=== PATIENT | female | born 1950 | race Caucasian/White ===

== ENCOUNTER 2017-05-19 05:14 | Inpatient (IN) | payer MEDICARE, BC ==
[~2017-05-19] VITALS: Ht 157.5 cm; Wt 72.3 kg
[2017-05-19] VITALS (32 sets, daily range): BP systolic 99–186; BP diastolic 58–115; PULSE 76–110; RESP 14–25; Ht 157.5 cm; Wt 72.3 kg
[~2017-05-19 05:14] MED LIST: CAPT12.52 PO; COSO10 BOTH EYES; FIORICET PO; ONDA-43 PO
[2017-05-19] MEDS ORDERED: CEFAZOLIN 2 GM/50 ML (PMX) 50 ML IVPB SCH (06:00)
[2017-05-19] MEDS ORDERED: SOD CHLORIDE 0.9% 1,000 ML IV SCH (06:00)
[2017-05-19] MEDS ORDERED: BUPIVACAINE 0.25% (MPF) 30 ML INJ ONE (06:28)
[2017-05-19] MEDS ORDERED: METOPROLOL 5 MG INJ ONE (07:00)
[2017-05-19] MEDS ORDERED: ONDANSETRON 4 MG INJ ONE (07:00)
[2017-05-19] MEDS ORDERED: MIDAZOLAM 1 MG/ML 2 ML INJ ONE (07:50)
[2017-05-19] MEDS ORDERED: POLYMYXIN/BACITRACIN 1L IRRIG IRR ONE (08:06)
[2017-05-19] MEDS ORDERED: CEFAZOLIN 1 GM INJ ONE (09:21)
[2017-05-19] MEDS ORDERED: hydrALAzine 20 MG INJ ONE (09:29)
[2017-05-19] MEDS ORDERED: PROPOFOL 20 ML ONE (09:56)
[2017-05-19] MEDS ORDERED: LIDOCAINE 2% (SDV) 5 ML INJ ONE (09:56)
[2017-05-19] MEDS ORDERED: GLYCOPYRROLATE 0.4 MG INJ ONE ×2 (09:58→10:14)
[2017-05-19] MEDS ORDERED: NEOSTIGMINE 3 MG/3 ML SYRINGE ONE (09:58)
[2017-05-19] MEDS: SOD CHLORIDE 0.9% 1,000 ML IV SCH ×2 (10:01→12:24)
--- NOTE | 2017-05-19 10:10 | OPR ---
Date/Time of Note Date/Time of Note DATE: 05/19/17 TIME: 10:03 Operative Report Procedure Date: May 19, 2017 Preoperative Diagnosis incarcerated incisional hernia Postoperative Diagnosis same Operation/Procedure Performed 1. laparoscopic converted to open incarcerated incisional hernia repair 2. implantation of intraabdominal 15x[address] mesh 3. small bowel resection with primary anastomosis 8 cm 4. lysis of adhesions 2 hours 5. therapeutic injection of subcutaneous local anesthesia Surgeon see signature line Admissions Representative none Anesthesia Type: general Estimated Blood Loss: 50 - 100 ml's Transfusion none Specimen small bowel segment Grafts/Implants none Complications none Pt Condition Post Procedure: stable Indications This is a 67-year-old female who has had prior open laparotomies. She presents with an incarcerated incisional hernia. She requests surgical repair. Risks alternatives benefits and percent were discussed the patient. Potential complications including but not limited to bleeding infection mesh infection need for small bowel resection need for reoperation possibly were discussed the patient. Patient expresses understanding and consents to the operation Procedure Description Patient is taken to the OR and prepped and draped in usual sterile fashion. Surgical timeout was performed. IV antibiotics given. Left upper quadrant 5 mm transverse incision is made with a 15 blade. Using a 5 mm optical trocar optical entry is performed pneumoperitoneum is established left flank 12 mm optical trochars placed under direct visualization left lower quadrant 5 mm optical trocar was placed under direct visualization. Upon initial inspection there is a large incarcerated hernia which did not appear amenable to a laparoscopic approach due to the wide neck of the defect. additionally there was a significant amount of adhesions to the anterior abdominal wall from prior laparotomies. Decision was made to convert to open. Midline incision was made with resection of part of the cicatrix. Dissection cautery was carried down to the hernia. The incarcerated hernia was reduced. Extensive lysis of adhesions was performed to allow mobilization of the small bowel and to freshen up the fascial edges. An area of incarcerated intestine was identified which appeared that the small bowel was macerated and is teased. This area was resected using the double staple technique by creating 2 enterotomies and stapling with 2 fires of the 55 white load stapler for the anastomosis. The resected portion was removed by 2 fires of a 55 white load SARTHAK stapler. The staple line was then oversewn with a 3-0 Vicryl stitch for additional hemostasis. There was absolutely no spillage. Irrigation was used to wash at the area. At this point the decision was made to place a synthetic mesh as a biologic mesh did not appear to have the strength to hold the large neck of the hernia. Underlay mesh with 15 x [address] was secured in place with interrupted #1 Prolenes. The fascial edges were then closed primarily with 2 running #1 looped PDS is from superior to inferior and inferior to superior and tied down. The wound was irrigated again with antibiotic solution. Skin was closed using skin anna. The port sites were closed with skin anna. Therapeutic subcutaneous local anesthesia was injected to all incision sites. Dry dressings were applied. Keegan TERRY May 19, 2017 10:10
[2017-05-19] MEDS ORDERED: HYDROCODONE/APAP (10/325) TAB PO PRN (10:30)
[2017-05-19] MEDS ORDERED: EPHEDrine SULFATE 50 MG/5 ML SYG IV PRN (10:30)
[2017-05-19] MEDS ORDERED: ALBUTEROL 0.083% (NEB) 2.5 MG/3 ML AMP HHN PRN (10:30)
[2017-05-19] MEDS ORDERED: METOCLOPRAMIDE 10 MG INJ IV PRN (10:30)
[2017-05-19] MEDS ORDERED: FENTAnyl 50 MCG/ML VIAL IV PRN ×2 (10:30)
[2017-05-19] MEDS: AMPICILLIN/SULB 3 GM/NS (PMX) 100 ML IVPB SCH ×3 (10:30→21:50)
[2017-05-19] MEDS ORDERED: LABETALOL HCL 20MG INJ IV PRN (10:30)
[2017-05-19] MEDS ORDERED: morphine 2 MG INJ IV PRN (10:30)
[2017-05-19] MEDS ORDERED: hydrALAzine 20 MG INJ IV PRN (10:30)
[2017-05-19] MEDS ORDERED: HYDROmorphONE (0.2 MG/ML) 10ML SYG IV PRN ×2 (10:30)
[2017-05-19] MEDS: metroNIDAZOLE 500 MG/NS (PMX) 100 ML IVPB SCH ×3 (10:30→18:52)
[2017-05-19] MEDS ORDERED: morphine (1 MG/ML) 10ML SYRINGE IV PRN ×2 (10:30)
[2017-05-19] MEDS ORDERED: ONDANSETRON 4 MG INJ IV PRN (10:30)
[2017-05-19] MEDS: HYDROmorphONE (0.2 MG/ML) 10ML SYG IV PRN ×3 (10:36→10:47)
[2017-05-19] MEDS ORDERED: HYDROmorphONE 0.2 MG/ML PCA IV SCH (11:00)
[2017-05-19] MEDS ORDERED: MEPERIDINE 25 MG INJ IV ONE (11:00)
[2017-05-19 11:36] LABS: BASOPHIL # 0.2 10^3/ul (0.0-0.1); BASOPHILS % 0.7 % (0.0-2.0); EOSINOPHILS # 0.5 10^3/ul (0.0-0.5); EOSINOPHILS % 2.3 % (0.0-7.0); HEMOGLOBIN 13.7 g/dl (12.0-16.0); HOLD TRANSMISSIONS 1; LYMPHOCYTES # 2.5 10^3/ul (0.8-2.9); LYMPHOCYTES % 11.6 % (15.0-51.0); MEAN CORPUSCULAR HEMOGLOBIN 28.1 pg (29.0-33.0); MEAN CORPUSCULAR HGB CONC 31.9 g/dl (32.0-37.0); MEAN CORPUSCULAR VOLUME 88.3 fl (82.0-101.0); MEAN PLATELET VOLUME 9.7 fl (7.4-10.4); MONOCYTE # 0.9 10^3/ul (0.3-0.9); NEUTROPHIL # 17.3 10^3/ul (1.6-7.5); NEUTROPHILS % 79.9 % (39.0-77.0); PLATELET COUNT 423 10^3/UL (140-415); RED BLOOD COUNT 4.87 10^6/ul (4.20-5.40); RED CELL DISTRIBUTION WIDTH 13.1 % (11.5-14.5); WHITE BLOOD COUNT 21.7 10^3/ul (4.8-10.8)
[2017-05-19 11:58] LABS: ALBUMIN 4.1 g/dl (3.3-4.9); ALBUMIN/GLOBULIN RATIO 0.97; BILIRUBIN,INDIRECT 0.2 mg/dl (0-1.1); BILIRUBIN,TOTAL 0.2 mg/dl (0.2-1.3); TOTAL PROTEIN 8.3 g/dl (6.1-8.1)
[2017-05-19 12:03] LABS: CALCIUM 9.1 mg/dl (8.4-10.2); CREATININE 0.68 mg/dl (0.44-1.00); POTASSIUM 3.9 mmol/L (3.5-5.1)
--- NOTE | 2017-05-19 13:24 | HP ---
DATE OF ADMISSION: 05/19/2017 HISTORY OF PRESENT ILLNESS: The patient is a 67-year-old female with history of hypertension, conge stive heart failure, major depressive disorder and insomnia. The patient was evaluated for ventral and umbilical hernia. The patient was evaluated in general surgery consultation and patient was bro ught to the hospital and was evaluated by Dr. Mancilla and patient was brought to the hospital today and underwent laparoscopic, converted to open, incarcerated incisional hernia repair with implementation of intraabdominal mesh, and small bowel resection with primary anastomosis and lysis of adhesions. Post repair, the patient experienced significant pain as well as hypertension and patient will be a dmitted for further management. PAST MEDICAL HISTORY: Per HPI. PAST SURGICAL HISTORY: Status post hysterectomy in 1980, status post cataract surgery in the right eye in 2009, status post cholecystectomy in 2012. FAMILY HISTORY: Positive for history of depression and hypertension. SOCIAL HISTORY: The patient lives at home with his family. There is history of tobacco use, alcoho l use, illicit drug use. ALLERGIES: NO KNOWN ALLERGIES. HOME MEDICATIONS: Include captopril head and Cosopt eyedrops. REVIEW OF SYSTEMS: A 12-point review of systems is negative unless what mentioned in the HPI. PHYSICAL ASSESSMENT: GENERAL: Well-developed, well-nourished female, currently is lethargic, but easily arousable, alert to name and situation. VITAL SIGNS: Temperature is 98.0, pulse is 106, blood pressure 146/89, respiratory rate 21, oxygen saturation 93% on 2 liters nasal cannula. HEENT: Head is atraumatic, normocephalic. Pupils equal, round, reactive to light and accommodation . Oral mucosa is pink and moist. NECK: Supple, no cervical lymphadenopathy, no thyromegaly. CHEST: Lungs clear bilaterally. There are no rhonchi, wheezes, rales noted. CARDIOVASCULAR: Normal S1, S2. No murmurs, gallops, or extra sound. ABDOMEN: Status post surgery. SKIN: There is no rash, petechiae noted. EXTREMITIES: Pulses equal bilaterally 2+. LABORATORY DATA: Prior to surgery: CBC: White blood cells 7.0, hemoglobin 13.7, hematocrit 41.2, platelets 258. Chemistry: Sodium is 141, potassium 4.2, chloride 103, CO2 is 30, glucose 84, BUN i s 13, creatinine 0.6. ASSESSMENT AND PLAN: 1. Incarcerated incisional hernia. Status post laparoscopic converted to open incarcerated incisio nal hernia repair with implantation of mesh, and a small bowel resection. Will start patient on VETERINARY MEDICINE DOCTOR Dilaudid p.r.n. for pain, and Zofran p.r.n. for nausea. Continue IV fluids and postoperative antib iotics. 2. Hypertension. Will continue hydralazine IV p.r.n. for systolic blood pressure above 170. 3. Hyperlipidemia. 4. History of depression. 5. Advance diet per surgery. Sequential compression devices for deep venous thrombosis prophylaxis . Further recommendations based on clinical course. Plan of care discussed with Dr. Saavedra. Dictated By: EDWINA KEATING ELECTRICAL MAINTENANCE WORKER for [employer] SAAVEDRA MD SR/NTS Conf#: [id number] DID#: [id number]
[2017-05-19] MEDS ORDERED: POLYMYXIN/BACITRACIN 1L IRRIG ONE (15:08)
[2017-05-19] MEDS: ONDANSETRON 4 MG INJ IV PRN ×2 (16:57→21:58)
[2017-05-19] MEDS: ACETAMINOPHEN 1000MG/100ML IV 100 ML IVPB PRN ×2 (16:57→23:32)
[2017-05-19] MEDS: hydrALAzine 20 MG INJ IV PRN ×2 (16:58→22:52)
[2017-05-19] MEDS ORDERED: VITAMIN A & D 5 GM OINT PACKET TOP ONE (21:43)
[2017-05-20] VITALS (8 sets, daily range): BP systolic 123–155; BP diastolic 67–92; PULSE 74–96; RESP 16–20
[2017-05-20] MEDS: SOD CHLORIDE 0.9% 1,000 ML IV SCH ×3 (02:04→14:36)
[2017-05-20] MEDS: metroNIDAZOLE 500 MG/NS (PMX) 100 ML IVPB SCH (02:04)
[2017-05-20] MEDS: ONDANSETRON 4 MG INJ IV PRN (04:42)
[2017-05-20] MEDS: hydrALAzine 20 MG INJ IV PRN (05:27)
[2017-05-20 05:29] LABS: BASOPHILS % 0.3 % (0.0-2.0); EOSINOPHILS % 0.1 % (0.0-7.0); HEMATOCRIT 39.5 % (37.0-47.0); HEMOGLOBIN 12.5 g/dl (12.0-16.0); LYMPHOCYTES # 1.9 10^3/ul (0.8-2.9); LYMPHOCYTES % 15.4 % (15.0-51.0); MEAN CORPUSCULAR HEMOGLOBIN 28.2 pg (29.0-33.0); MEAN CORPUSCULAR HGB CONC 31.6 g/dl (32.0-37.0); MEAN CORPUSCULAR VOLUME 89.2 fl (82.0-101.0); MEAN PLATELET VOLUME 9.9 fl (7.4-10.4); MONOCYTE # 1.1 10^3/ul (0.3-0.9); MONOCYTES % 9.2 % (0.0-11.0); NEUTROPHIL # 8.9 10^3/ul (1.6-7.5); PLATELET COUNT 333 10^3/UL (140-415); RED BLOOD COUNT 4.43 10^6/ul (4.20-5.40); RED CELL DISTRIBUTION WIDTH 13.2 % (11.5-14.5); WHITE BLOOD COUNT 12.1 10^3/ul (4.8-10.8)
[2017-05-20] MEDS: ACETAMINOPHEN 1000MG/100ML IV 100 ML IVPB PRN ×2 (05:32→16:46)
[2017-05-20 05:44] LABS: ALBUMIN/GLOBULIN RATIO 0.9; BILIRUBIN,INDIRECT 0.6 mg/dl (0-1.1); BILIRUBIN,TOTAL 0.6 mg/dl (0.2-1.3); CALCIUM 9.5 mg/dl (8.4-10.2); CREATININE 0.7 mg/dl (0.44-1.00); POTASSIUM 3.7 mmol/L (3.5-5.1); TOTAL PROTEIN 8.4 g/dl (6.1-8.1)
[2017-05-20] MEDS: AMPICILLIN/SULB 3 GM/NS (PMX) 100 ML IVPB SCH (06:17)
[2017-05-20] MEDS ORDERED: KETOROLAC 30 MG INJ IV STA (08:18)
[2017-05-20] MEDS ORDERED: hydrALAzine 20 MG INJ IV STA (08:18)
[2017-05-20] MEDS ORDERED: METOCLOPRAMIDE 10 MG INJ IV PRN (08:18)
[2017-05-20] MEDS ORDERED: METOCLOPRAMIDE 10 MG INJ ONE (08:24)
[2017-05-20] MEDS ORDERED: KETOROLAC 30 MG INJ ONE (08:24)
[2017-05-20] MEDS: LORAZEPAM 2 MG INJ IV PRN ×2 (11:34→23:08)
[2017-05-20] MEDS ORDERED: CLONIDINE 0.1 MG/24 HR PATCH TRANSDERM SCH (12:00)
[2017-05-20] MEDS ORDERED: DORZOLAMIDE/TIMOLOL 10 ML OPH BOTH EYES SCH (13:00)
--- NOTE | 2017-05-20 13:00 | PN ---
Date/Time of Note Date/Time of Note DATE: 05/20/17 TIME: 12:56 Assessment/Plan VTE Prophylaxis VTE Prophylaxis Intervention: SCD's Lines/Catheters IV Catheter Type (from [facility]): Peripheral IV Urinary Cath still in place: No Assessment/Plan Chief Complaint/Hosp Course Pt is anxious, agitated, did not sleep well at night. Pt finally fall asleep after ativan dose. Stable BP. Pt's condition and plan of care d/w pt's daughter at the bedside. all question answered. Problems: Assessment/Plan 1. Incarcerated incisional hernia. Status post laparoscopic converted to open incarcerated incisional hernia repair with implantation of mesh, and a small bowel resection. Continue patient on PAPER FINAL INSPECTOR Dilaudid p.r.n. for pain, and Zofran p.r.n. for nausea. Continue IV fluids and postoperative antibiotics. 2. Hypertension. Start Clonidine patch. Continue hydralazine IV p.r.n. for systolic blood pressure above 170. 3. Hyperlipidemia. 4. History of depression. Exam/Review of Systems Vital Signs Vitals Vital Signs Date Time Temp Pulse Resp B/P Pulse Ox O2 Delivery O2 Flow Rate FiO2 05/20/17 12:34 96 16 123/71 99 Nasal Cannula 2.0 05/20/17 07:57 98.5 Intake and Output 05/19/17 05/19/17 05/20/17 14:59 22:59 06:59 Intake Total 1300 ml 700 ml 1700 ml Output Total 30 ml Balance 1270 ml 700 ml 1700 ml Exam Constitutional: alert Head: normocephalic Neck: supple Respiratory: normal air movement Cardiovascular: nl pulses Gastrointestinal: soft Extremities: normal pulses Results Result Diagram: 05/20/17 0449 05/20/17 0449 Results 24 hrs Laboratory Tests Test 05/20/17 04:49 White Blood Count 12.1 #H Red Blood Count 4.43 Hemoglobin 12.5 Hematocrit 39.5 Mean Corpuscular Volume 89.2 Mean Corpuscular Hemoglobin 28.2 L Mean Corpuscular Hemoglobin Concent 31.6 L Red Cell Distribution Width 13.2 Platelet Count 333 # Mean Platelet Volume 9.9 Neutrophils % 74.0 Lymphocytes % 15.4 Monocytes % 9.2 Eosinophils % 0.1 Basophils % 0.3 Nucleated Red Blood Cells % 0.0 Neutrophils # 8.9 H Lymphocytes # 1.9 Monocytes # 1.1 H Eosinophils # 0.0 Basophils # 0.0 Nucleated Red Blood Cells # 0.0 Sodium Level 146 H Potassium Level 3.7 Chloride Level 106 Carbon Dioxide Level 28 Anion Gap 16 Blood Urea Nitrogen 10 Creatinine 0.70 Glucose Level 147 # Calcium Level 9.5 Total Bilirubin 0.6 Direct Bilirubin 0.00 Indirect Bilirubin 0.6 Aspartate Amino Transf (AST/SGOT) 24 Alanine Aminotransferase (ALT/SGPT) 29 Alkaline Phosphatase 62 Total Protein 8.4 H Albumin 4.0 Globulin 4.40 H Albumin/Globulin Ratio 0.90 Medications Medications Current Medications Morphine Sulfate (morphine) 2 mg Q2H PRN IV PAIN LEVEL 6-10; Start 05/19/17 at 10:30 Acetaminophen/ Hydrocodone Bitart 1 tab 1 tab Q6H PRN PO PAIN; Start 05/19/17 at 10:30 Sodium Chloride (NS) 1,000 ml @ 80 mls/hr [id number] IV Last administered on 02:04; Admin Dose 100 MLS/HR; Start 05/19/17 at 10:01 Hydralazine HCl 10 mg 10 mg Q4H PRN IV SBP>140 OR DBP>90 Last administered on 05/20/17 05:27; Admin Dose 10 MG; Start 05/19/17 at 12:00 Acetaminophen (Ofirmev 1000mg/ 100ml Iv) 100 ml @ 400 mls/hr Q6H PRN IVPB HEADACHE Last administered on 05/20/17 05:32; Admin Dose 400 MLS/HR; Start at 16:30 Ondansetron HCl (Zofran Inj) 4 mg Q4H PRN IV NAUSEA AND/OR VOMITING Last administered on 05/20/17 04:42; Admin Dose 4 MG; Start 05/19/17 at 16:20 Metoclopramide HCl (Reglan) 10 mg Q6H PRN IV NAUSEA AND/OR VOMITING Last administered on 05/20/17 08:38; Admin Dose 10 MG; Start 05/20/17 at 08:18 Lorazepam (Ativan) 1 mg Q6H PRN IV AGITATION/ANXIETY Last administered on 05/20 11:34; Admin Dose 1 MG; Start 05/20/17 at 11:00 Clonidine HCl (Catapres-Tts 1 Patch) 1 patch Q7D TRANSDERM Last administered on 05/20/17t 12:37; Admin Dose 1 PATCH; Start 05/20/17 at 12:00 Dorzolamide/ Timolol (Cosopt) 1 drop BID BOTH EYES ; Start 05/20/17 at 13:00 EDWINA KEATING May 20, 2017 13:00
--- NOTE | 2017-05-20 14:45 | PN ---
Date/Time of Note Date/Time of Note DATE: 05/20/17 TIME: 14:43 Assessment/Plan VTE Prophylaxis VTE Prophylaxis Intervention: SCD's Lines/Catheters IV Catheter Type (from Nrs): Peripheral IV Urinary Cath still in place: No Assessment/Plan Chief Complaint/Hosp Course s/p lap converted to open incisional hernia repair with mesh and small bowel resection Problems: Assessment/Plan start clears Subjective 24 Hr Interval Summary Free Text/Dictation doing well but some headaches, glaucoma medication restarted Exam/Review of Systems Vital Signs Vitals Vital Signs Date Time Temp Pulse Resp B/P Pulse Ox O2 Delivery O2 Flow Rate FiO2 05/20/17 14:40 96 139/78 05/20/17 14:07 99.7 20 99 05/20/17 12:34 Nasal Cannula 2.0 Intake and Output 05/19/17 05/19/17 05/20/17 15:00 23:00 07:00 Intake Total 1300 ml 700 ml 1700 ml Output Total 30 ml Balance 1270 ml 700 ml 1700 ml Exam c/d/i Results Result Diagram: 05/20/17 0449 05/20/17 0449 Results 24 hrs Laboratory Tests Test 05/20/17 04:49 White Blood Count 12.1 #H Red Blood Count 4.43 Hemoglobin 12.5 Hematocrit 39.5 Mean Corpuscular Volume 89.2 Mean Corpuscular Hemoglobin 28.2 L Mean Corpuscular Hemoglobin Concent 31.6 L Red Cell Distribution Width 13.2 Platelet Count 333 # Mean Platelet Volume 9.9 Neutrophils % 74.0 Lymphocytes % 15.4 Monocytes % 9.2 Eosinophils % 0.1 Basophils % 0.3 Nucleated Red Blood Cells % 0.0 Neutrophils # 8.9 H Lymphocytes # 1.9 Monocytes # 1.1 H Eosinophils # 0.0 Basophils # 0.0 Nucleated Red Blood Cells # 0.0 Sodium Level 146 H Potassium Level 3.7 Chloride Level 106 Carbon Dioxide Level 28 Anion Gap 16 Blood Urea Nitrogen 10 Creatinine 0.70 Glucose Level 147 # Calcium Level 9.5 Total Bilirubin 0.6 Direct Bilirubin 0.00 Indirect Bilirubin 0.6 Aspartate Amino Transf (AST/SGOT) 24 Alanine Aminotransferase (ALT/SGPT) 29 Alkaline Phosphatase 62 Total Protein 8.4 H Albumin 4.0 Globulin 4.40 H Albumin/Globulin Ratio 0.90 Medications Medications Current Medications Morphine Sulfate (morphine) 2 mg Q2H PRN IV PAIN LEVEL 6-10; Start 05/19/17 at 10:30 Acetaminophen/ Hydrocodone Bitart 1 tab 1 tab Q6H PRN PO PAIN; Start 05/19/17 at 10:30 Sodium Chloride (NS) 1,000 ml @ 80 mls/hr [id number] IV Last administered on 14:36; Admin Dose 80 MLS/HR; Start 05/19/17 at 10:01 Hydralazine HCl 10 mg 10 mg Q4H PRN IV SBP>140 OR DBP>90 Last administered on 05/20/17 05:27; Admin Dose 10 MG; Start 05/19/17 at 12:00 Acetaminophen (Ofirmev 1000mg/ 100ml Iv) 100 ml @ 400 mls/hr Q6H PRN IVPB HEADACHE Last administered on 05/20/17 05:32; Admin Dose 400 MLS/HR; Start at 16:30 Ondansetron HCl (Zofran Inj) 4 mg Q4H PRN IV NAUSEA AND/OR VOMITING Last administered on 05/20/17 04:42; Admin Dose 4 MG; Start 05/19/17 at 16:20 Metoclopramide HCl (Reglan) 10 mg Q6H PRN IV NAUSEA AND/OR VOMITING Last administered on 05/20/17 08:38; Admin Dose 10 MG; Start 05/20/17 at 08:18 Lorazepam (Ativan) 1 mg Q6H PRN IV AGITATION/ANXIETY Last administered on 05/20 11:34; Admin Dose 1 MG; Start 05/20/17 at 11:00 Clonidine HCl (Catapres-Tts 1 Patch) 1 patch Q7D TRANSDERM Last administered on 05/20/17 12:37; Admin Dose 1 PATCH; Start 05/20/17 at 12:00 Dorzolamide/ Timolol (Cosopt) 1 drop DAILY BOTH EYES ; Start 05/21/17 at 09:00 Keegan TERRY May 20, 2017 14:45
[2017-05-20] MEDS: IBUPROFEN 200 MG TAB PO PRN (16:56)
--- NOTE | 2017-05-20 22:13 | RADRPT ---
PROCEDURE: XR Chest. CLINICAL INDICATION: Shortness of breath TECHNIQUE: Single AP portable chest. COMPARISON: 10/07/2014 Chest x-ray FINDINGS: The cardiac silhouette is at the upper limits of normal in size accentuated by hypoinflation with cr owding of vascular structures. There still appears to be mild vascular prominence and blunting of th e costophrenic angles suspicious for small pleural effusions suggestive of vascular congestion. Tort uosity of the thoracic aorta. Atherosclerotic calcification of the aorta. No focal consolidation. C hronic elevation of the right hemidiaphragm. Bibasilar atelectasis. <No pneumothorax. The osseous st ructures and soft tissues are unremarkable. IMPRESSION: 1. Hypoinflation with the prominence of the pulmonary vascularity and interstitial markings with bib asilar atelectasis. This may reflect crowding of vascular structures or vascular congestion. Probabl e trace bilateral pleural effusions . RPTAT:AAJJ Physician Rosio Date Time Electronically viewed and signed by Physician Rosio on 05/20/2017 22:13 WAI/
[2017-05-21] MEDS: SOD CHLORIDE 0.9% 1,000 ML IV SCH (05:58)
[2017-05-21 07:55] VITALS: BP 142/83; RESP 20
[2017-05-21] MEDS: DORZOLAMIDE/TIMOLOL 10 ML OPH BOTH EYES SCH (09:42)
[2017-05-21] MEDS: LORAZEPAM 2 MG INJ IV PRN (10:25)
[2017-05-21] MEDS: IBUPROFEN 200 MG TAB PO PRN (13:35)
[2017-05-21 14:00] VITALS: BP 136/84; RESP 20
--- NOTE | 2017-05-21 14:52 | PN ---
Date/Time of Note Date/Time of Note DATE: 05/21/17 TIME: 14:51 Assessment/Plan VTE Prophylaxis VTE Prophylaxis Intervention: SCD's Lines/Catheters IV Catheter Type (from [facility]): Peripheral IV Urinary Cath still in place: No Assessment/Plan Chief Complaint/Hosp Course s/p lap converted to open incisional hernia repair with mesh and small bowel resection Problems: Assessment/Plan continue care abx added due to fevers check labs and start soft diet Subjective 24 Hr Interval Summary Free Text/Dictation doing well, some fevers Exam/Review of Systems Vital Signs Vitals Vital Signs Date Time Temp Pulse Resp B/P Pulse Ox O2 Delivery O2 Flow Rate FiO2 05/21/17 14:00 99.2 96 20 136/84 92 05/21/17 08:50 Nasal Cannula 2.0 Intake and Output 05/20/17 05/20/17 05/21/17 15:00 23:00 07:00 Intake Total 700 ml 340 ml 1260 ml Output Total 1500 ml Balance 700 ml 340 ml -240 ml Exam dressing intact Results Result Diagram: 05/20/17 0449 05/20/17 0449 Medications Medications Current Medications Morphine Sulfate (morphine) 2 mg Q2H PRN IV PAIN LEVEL 6-10; Start 05/19/17 at 10:30 Acetaminophen/ Hydrocodone Bitart 1 tab 1 tab Q6H PRN PO PAIN; Start 05/19/17 at 10:30 Sodium Chloride (NS) 1,000 ml @ 80 mls/hr [id number] IV Last administered on 05:58; Admin Dose 80 MLS/HR; Start 05/19/17 at 10:01 Hydralazine HCl 10 mg 10 mg Q4H PRN IV SBP>140 OR DBP>90 Last administered on 05/20/17 05:27; Admin Dose 10 MG; Start 05/19/17 at 12:00 Acetaminophen (Ofirmev 1000mg/ 100ml Iv) 100 ml @ 400 mls/hr Q6H PRN IVPB HEADACHE Last administered on 05/20/17 16:46; Admin Dose 400 MLS/HR; Start at 16:30 Ondansetron HCl (Zofran Inj) 4 mg Q4H PRN IV NAUSEA AND/OR VOMITING Last administered on 05/20/17 04:42; Admin Dose 4 MG; Start 05/19/17 at 16:20 Metoclopramide HCl (Reglan) 10 mg Q6H PRN IV NAUSEA AND/OR VOMITING Last administered on 05/20/17 08:38; Admin Dose 10 MG; Start 05/20/17 at 08:18 Lorazepam (Ativan) 1 mg Q6H PRN IV AGITATION/ANXIETY Last administered on 05/21 10:25; Admin Dose 1 MG; Start 05/20/17 at 11:00 Clonidine HCl (Catapres-Tts 1 Patch) 1 patch Q7D TRANSDERM Last administered on 05/20/17 12:37; Admin Dose 1 PATCH; Start 05/20/17 at 12:00 Dorzolamide/ Timolol (Cosopt) 1 drop DAILY BOTH EYES Last administered on 05/21 09:42; Admin Dose 1 DROP; Start 05/21/17 at 09:00 Ibuprofen 200 mg 200 mg Q6H PRN PO PAIN OR TEMP ABOVE 38C Last administered on 05/21/17 13:35; Admin Dose 200 MG; Start 05/20/17 at 15:00 Piperacillin Sod/ Tazobactam Sod (Zosyn 3.375gm/ 100 ml (Pmx)) 100 ml @ 200 mls /hr Q6 IVPB ; Start 05/21/17 at 15:00 Keegan TERRY May 21, 2017 14:52
[2017-05-21] MEDS: PIPER-TAZO 3.375 GM IV (PMX) 100 ML IVPB SCH ×2 (15:16→21:29)
--- NOTE | 2017-05-21 16:23 | PN ---
Date/Time of Note Date/Time of Note DATE: 05/21/17 TIME: 16:21 Assessment/Plan VTE Prophylaxis VTE Prophylaxis Intervention: SCD's Lines/Catheters IV Catheter Type (from Nrsg): Peripheral IV Urinary Cath still in place: No Assessment/Plan Chief Complaint/Hosp Course Patient stated that she feels better, pain is well controlled denies any headache blood pressure is well controlled. Low-grade fever continue postoperative antibiotics. Assessment/Plan 1. Incarcerated incisional hernia. Status post laparoscopic converted to open incarcerated incisional hernia repair with implantation of mesh, and a small bowel resection. Continue patient on STEAM TABLE ASSOCIATE Dilaudid p.r.n. for pain, and Zofran p.r.n. for nausea. Continue IV fluids and postoperative antibiotics. 2. Hypertension. Start Clonidine patch. Continue hydralazine IV p.r.n. for systolic blood pressure above 170. 3. Hyperlipidemia. 4. History of depression. Further recommendations based on clinical course. Plan of care discussed with Dr. Saavedra Problems: Exam/Review of Systems Vital Signs Vitals Vital Signs Date Time Temp Pulse Resp B/P Pulse Ox O2 Delivery O2 Flow Rate FiO2 05/21/17 14:00 99.2 96 20 136/84 92 05/21/17 08:50 Nasal Cannula 2.0 Intake and Output 05/20/17 05/20/17 05/21/17 15:00 23:00 07:00 Intake Total 700 ml 340 ml 1260 ml Output Total 1500 ml Balance 700 ml 340 ml -240 ml Exam Constitutional: alert Head: normocephalic Neck: supple Respiratory: normal air movement Cardiovascular: nl pulses Gastrointestinal: soft Extremities: normal pulses Constitutional: alert, oriented Head: normocephalic Neck: supple Respiratory: normal air movement Cardiovascular: nl pulses Gastrointestinal: other (Status post surgery), soft Extremities: normal pulses Results Result Diagram: 05/20/1744805/20/17448 Medications Medications Current Medications Morphine Sulfate (morphine) 2 mg Q2H PRN IV PAIN LEVEL 6-10; Start 05/19/17 at 10:30 Acetaminophen/ Hydrocodone Bitart 1 tab 1 tab Q6H PRN PO PAIN; Start 05/19/17 at 10:30 Sodium Chloride (NS) 1,000 ml @ 80 mls/hr [id number] IV Last administered on t 05:58; Admin Dose 80 MLS/HR; Start 05/19/17 at 10:01 Hydralazine HCl 10 mg 10 mg Q4H PRN IV SBP>140 OR DBP>90 Last administered on 05/20/17 05:27; Admin Dose 10 MG; Start 05/19/17 at 12:00 Acetaminophen (Ofirmev 1000mg/ 100ml Iv) 100 ml @ 400 mls/hr Q6H PRN IVPB HEADACHE Last administered on 05/20/17 16:46; Admin Dose 400 MLS/HR; Start at 16:30 Ondansetron HCl (Zofran Inj) 4 mg Q4H PRN IV NAUSEA AND/OR VOMITING Last administered on 05/20/17 04:42; Admin Dose 4 MG; Start 05/19/17 at 16:20 Metoclopramide HCl (Reglan) 10 mg Q6H PRN IV NAUSEA AND/OR VOMITING Last administered on 05/20/17 08:38; Admin Dose 10 MG; Start 05/20/17 at 08:18 Lorazepam (Ativan) 1 mg Q6H PRN IV AGITATION/ANXIETY Last administered on 05/21 10:25; Admin Dose 1 MG; Start 05/20/17 at 11:00 Clonidine HCl (Catapres-Tts 1 Patch) 1 patch Q7D TRANSDERM Last administered on 05/20/17 12:37; Admin Dose 1 PATCH; Start 05/20/17 at 12:00 Dorzolamide/ Timolol (Cosopt) 1 drop DAILY BOTH EYES Last administered on 05/21 09:42; Admin Dose 1 DROP; Start 05/21/17 at 09:00 Ibuprofen 200 mg 200 mg Q6H PRN PO PAIN OR TEMP ABOVE 38C Last administered on 05/21/17 13:35; Admin Dose 200 MG; Start 05/20/17 at 15:00 Piperacillin Sod/ Tazobactam Sod (Zosyn 3.375gm/ 100 ml (Pmx)) 100 ml @ 200 mls /hr Q6 IVPB Last administered on 05/21/17 15:16; Admin Dose 200 MLS/HR; Start 05/21/17 at 15:00 EDWINA KEATING May 21, 2017 16:23
[2017-05-21] MEDS: 1/2 NS + KCL 20 MEQ 1,000 ML IV SCH (17:28)
[2017-05-21 21:29] VITALS: BP 139/85; RESP 20
[2017-05-22] MEDS: PIPER-TAZO 3.375 GM IV (PMX) 100 ML IVPB SCH ×4 (00:26→18:00)
[2017-05-22] MEDS: LORAZEPAM 2 MG INJ IV PRN (01:31)
[2017-05-22 02:25] VITALS: BP 131/67; RESP 20
[2017-05-22] MEDS: 1/2 NS + KCL 20 MEQ 1,000 ML IV SCH (07:02)
[2017-05-22 07:33] VITALS: BP 142/86; RESP 18
[2017-05-22] MEDS: DORZOLAMIDE/TIMOLOL 10 ML OPH BOTH EYES SCH (09:02)
[2017-05-22 09:11] LABS: BASOPHILS % 0.5 % (0.0-2.0); EOSINOPHILS # 0.5 10^3/ul (0.0-0.5); EOSINOPHILS % 8.3 % (0.0-7.0); HEMATOCRIT 34.6 % (37.0-47.0); HEMOGLOBIN 11.1 g/dl (12.0-16.0); LYMPHOCYTES # 1.6 10^3/ul (0.8-2.9); LYMPHOCYTES % 23.8 % (15.0-51.0); MEAN CORPUSCULAR HEMOGLOBIN 27.9 pg (29.0-33.0); MEAN CORPUSCULAR HGB CONC 32.1 g/dl (32.0-37.0); MEAN CORPUSCULAR VOLUME 86.9 fl (82.0-101.0); MONOCYTE # 0.6 10^3/ul (0.3-0.9); MONOCYTES % 8.6 % (0.0-11.0); NEUTROPHIL # 3.8 10^3/ul (1.6-7.5); NEUTROPHILS % 57.7 % (39.0-77.0); PLATELET COUNT 220 10^3/UL (140-415); RED BLOOD COUNT 3.98 10^6/ul (4.20-5.40); RED CELL DISTRIBUTION WIDTH 13.1 % (11.5-14.5); WHITE BLOOD COUNT 6.5 10^3/ul (4.8-10.8)
[2017-05-22 09:33] LABS: CALCIUM 9.2 mg/dl (8.4-10.2); CREATININE 0.66 mg/dl (0.44-1.00); POTASSIUM 3.2 mmol/L (3.5-5.1)
[2017-05-22] MEDS ORDERED: POTASSIUM CHLORIDE (SR) 20 MEQ TAB PO STA (11:32)
--- NOTE | 2017-05-22 14:22 | PN ---
Date/Time of Note Date/Time of Note DATE: 05/22/17 TIME: 14:21 Assessment/Plan VTE Prophylaxis VTE Prophylaxis Intervention: SCD's Lines/Catheters IV Catheter Type (from Nrsg): Peripheral IV Urinary Cath still in place: No Assessment/Plan Chief Complaint/Hosp Course s/p lap converted to open incisional hernia repair with mesh and small bowel resection Problems: Assessment/Plan tolerating diet, had a bm ok to dc and f/u in 2 weeks in office Subjective 24 Hr Interval Summary Free Text/Dictation doing well, had a bm, tolerating diet Exam/Review of Systems Vital Signs Vitals Vital Signs Date Time Temp Pulse Resp B/P Pulse Ox O2 Delivery O2 Flow Rate FiO2 05/22/17 07:33 98.4 75 18 142/86 97 05/21/17 08:50 Nasal Cannula 2.0 Intake and Output 05/21/17 05/21/17 05/22/17 15:00 23:00 07:00 Intake Total 2380 ml 1000 ml Output Total 1200 ml Balance 1180 ml 1000 ml Exam c/d/i Results Result Diagram: 05/22/17 0746 05/22/17 0746 Results 24 hrs Laboratory Tests Test 05/22/17 07:46 White Blood Count 6.5 # Red Blood Count 3.98 L Hemoglobin 11.1 L Hematocrit 34.6 L Mean Corpuscular Volume 86.9 Mean Corpuscular Hemoglobin 27.9 L Mean Corpuscular Hemoglobin Concent 32.1 Red Cell Distribution Width 13.1 Platelet Count 220 # Mean Platelet Volume 10.0 Neutrophils % 57.7 Lymphocytes % 23.8 Monocytes % 8.6 Eosinophils % 8.3 H Basophils % 0.5 Nucleated Red Blood Cells % 0.0 Neutrophils # 3.8 Lymphocytes # 1.6 Monocytes # 0.6 Eosinophils # 0.5 Basophils # 0.0 Nucleated Red Blood Cells # 0.0 Sodium Level 145 H Potassium Level 3.2 L Chloride Level 108 Carbon Dioxide Level 27 Anion Gap 13 Blood Urea Nitrogen 9 Creatinine 0.66 Glucose Level 114 Calcium Level 9.2 Medications Medications Current Medications Morphine Sulfate (morphine) 2 mg Q2H PRN IV PAIN LEVEL 6-10; Start 05/19/17 at 10:30 Acetaminophen/ Hydrocodone Bitart ([place] (10/325)) 1 tab Q6H PRN PO PAIN; Start 05/19/17 at 10:30 Hydralazine HCl 10 mg 10 mg Q4H PRN IV SBP>140 OR DBP>90 Last administered on 05/20/17 05:27; Admin Dose 10 MG; Start 05/19/17 at 12:00 Acetaminophen (Ofirmev 1000mg/ 100ml Iv) 100 ml @ 400 mls/hr Q6H PRN IVPB HEADACHE Last administered on 05/20/17 16:46; Admin Dose 400 MLS/HR; Start at 16:30 Ondansetron HCl (Zofran Inj) 4 mg Q4H PRN IV NAUSEA AND/OR VOMITING Last administered on 05/20/17 04:42; Admin Dose 4 MG; Start 05/19/17 at 16:20 Metoclopramide HCl (Reglan) 10 mg Q6H PRN IV NAUSEA AND/OR VOMITING Last administered on 05/20/17 08:38; Admin Dose 10 MG; Start 05/20/17 at 08:18 Lorazepam (Ativan) 1 mg Q6H PRN IV AGITATION/ANXIETY Last administered on 05/22 01:31; Admin Dose 1 MG; Start 05/20/17 at 11:00 Clonidine HCl (Catapres-Tts 1 Patch) 1 patch Q7D TRANSDERM Last administered on 05/20/17 12:37; Admin Dose 1 PATCH; Start 05/20/17 at 12:00 Dorzolamide/ Timolol (Cosopt) 1 drop DAILY BOTH EYES Last administered on 05/22 09:02; Admin Dose 1 DROP; Start 05/21/17 at 09:00 Ibuprofen 200 mg 200 mg Q6H PRN PO PAIN OR TEMP ABOVE 38C Last administered on 05/21/17 13:35; Admin Dose 200 MG; Start 05/20/17 at 15:00 Piperacillin Sod/ Tazobactam Sod 100 ml @ 200 mls/hr Q6 IVPB Last administered on 05/22/17 12:47; Admin Dose 200 MLS/HR; Start 05/21/17 at 15: 00 Potassium Chloride/Sodium Chloride (1/2 NS + KCl 20 Meq) 1,000 ml @ 60 mls/hr [id number] IV Last administered on 05/22/17 07:02; Admin Dose 60 MLS/HR; Start 05/21/17 at 16:30 Keegan TERRY May 22, 2017 14:22
--- NOTE | 2017-05-22 14:36 | PDOCDIS ---
Discharge Instructions CONDITION Patient Condition: Stable HOME CARE INSTRUCTIONS: Diet Instructions: Special Diet: soft diet ACTIVITY: Activity Restrictions: Slowly Increase Activity Rest between Activity Avoid heavy lifting Avoid Heavy Housework Bathing Restrictions: Shower FOLLOW UP/APPOINTMENTS Follow-up Plan FU with Primary x 1 week FU with surgery as recommended. Call 911 or go to the nearest hospital if symptoms get worse. Patient and family verbalized understanding dc instructions. Luis Dsouza/ staff VEE AMADOR May 22, 2017 14:36
[2017-05-22] MEDS ORDERED: CATTTS1 TRANSDERM (14:39)
--- NOTE | 2017-05-22 14:39 | DS ---
Date/Time of Note Date/Time of Note DATE: 05/22/17 TIME: 14:39 Discharge Summary Admission/Discharge Info Admit Date/Time May 19, 2017 at 10:01 Discharge Date/Time Patient Condition: Stable Hospital Course Patient stated that she feels better, pain is well controlled denies any headache blood pressure is well controlled. Low-grade fever continue postoperative antibiotics. Assessment/Plan 1. Incarcerated incisional hernia. Status post laparoscopic converted to open incarcerated incisional hernia repair with implantation of mesh, and a small bowel resection. Continue patient on [employer] Dilaudid p.r.n. for pain, and Zofran p.r.n. for nausea. Continue IV fluids and postoperative antibiotics. 2. Hypertension. Start Clonidine patch. Continue hydralazine IV p.r.n. for systolic blood pressure above 170. 3. Hyperlipidemia. 4. History of depression. Further recommendations based on clinical course. Plan of care discussed with Dr. Saavedra [facility] Clonidine Patch (CATAPRES PATCH) 0.1 Mg/24 Hr Patch, 1 PATCH TRANSDERM Q7D, #4 PATCH Prov:VEE AMADOR 05/22/17 Reported Medications Captopril* (Captopril*) Unknown Strength Tablet, 12.2 MG PO DAILY, #60 TAB 12/13/15 Dorzolamide-Timolol* (Cosopt*) 2%-0.5% Soln, 1 DROP BOTH EYES BID, BOTTLE 12/13/15 Discontinued Scripts Ondansetron Hcl* (Zofran*) 4 Mg Tab, 4 MG PO Q6H Y for NAUSEA AND OR VOMITING, # 6 TAB Prov:ENZO MICHELLE DO 12/13/15 Acetamin/Butalbital/Caffeine* (Fioricet*) 1 Tab Tab, 1 TAB PO Q4H Y for PAIN LEVEL 1-5, #14 TAB Prov:ENZO MICHELLE DO 12/13/15 Follow-up Plan FU with Primary x 1 week FU with surgery as recommended. Call 911 or go to the nearest hospital if symptoms get worse. Patient and family verbalized understanding dc instructions. Dw Dr Dsouza/ staff Primary Care Provider Roopa Nieto MD Time spent on discharge: < 30 minutes Pending Labs Laboratory Tests Test 05/22/17 07:46 White Blood Count 6.510^3/ul (4.8-10.8) Red Blood Count 3.9810^6/ul (4.20-5.40) Hemoglobin 11.1g/dl (12.0-16.0) Hematocrit 34.6% (37.0-47.0) Mean Corpuscular Volume 86.9fl (82.0-101.0) Mean Corpuscular Hemoglobin 27.9pg (29.0-33.0) Mean Corpuscular Hemoglobin Concent 32.1g/dl (32.0-37.0) Red Cell Distribution Width 13.1% (11.5-14.5) Platelet Count 49550^3/UL (140-415) Mean Platelet Volume 10.0fl (7.4-10.4) Neutrophils % 57.7% (39.0-77.0) Lymphocytes % 23.8% (15.0-51.0) Monocytes % 8.6% (0.0-11.0) Eosinophils % 8.3% (0.0-7.0) Basophils % 0.5% (0.0-2.0) Nucleated Red Blood Cells % 0.0/100WBC (0.0-0.0) Neutrophils # 3.810^3/ul (1.6-7.5) Lymphocytes # 1.610^3/ul (0.8-2.9) Monocytes # 0.610^3/ul (0.3-0.9) Eosinophils # 0.510^3/ul (0.0-0.5) Basophils # 0.010^3/ul (0.0-0.1) Nucleated Red Blood Cells # 0.010^3/ul (0.0-0.0) Sodium Level 145mmol/L (135-144) Potassium Level 3.2mmol/L (3.5-5.1) Chloride Level 108mmol/L (97-110) Carbon Dioxide Level 27mmol/L (21-31) Anion Gap 13 (8-16) Blood Urea Nitrogen 9mg/dl (7-20) Creatinine 0.66mg/dl (0.44-1.00) Glucose Level 114mg/dl (70-220) Calcium Level 9.2mg/dl (8.4-10.2) VEE AMADOR May 22, 2017 14:39
[2017-05-22] MEDS ORDERED: HYDR-906 PO (14:49)
[2017-05-22] MEDS ORDERED: DOCU-144 PO (14:49)
--- NOTE | 2017-05-22 14:53 | DS ---
Date/Time of Note Date/Time of Note DATE: 05/22/17 TIME: 14:51 Discharge Summary Admission/Discharge Info Admit Date/Time May 19, 2017 at 10:01 Discharge Date/Time Patient Condition: Stable Hospital Course Patient stated that she feels better, pain is well controlled denies any headache blood pressure is well controlled. Low-grade fever continue postoperative antibiotics. Assessment/Plan 1. Incarcerated incisional hernia. Status post laparoscopic converted to open incarcerated incisional hernia repair with implantation of mesh, and a small bowel resection. Continue patient on [employer] Dilaudid p.r.n. for pain, and Zofran p.r.n. for nausea. Continue IV fluids and postoperative antibiotics. 2. Hypertension. Start Clonidine patch. Continue hydralazine IV p.r.n. for systolic blood pressure above 170. 3. Hyperlipidemia. 4. History of depression. Further recommendations based on clinical course. Plan of care discussed with Dr. Saavedra [place] [facility] Active Script[facility] Docusate Sodium* (Colace*) 100 Mg Capsule, 100 MG PO DAILY, #20 CAP Prov:VEE AMADOR 05/22/17 Clonidine Patch (CATAPRES PATCH) 0.1 Mg/24 Hr Patch, 1 PATCH TRANSDERM Q7D, #4 PATCH Prov:VEE AMADOR 05/22/17 Reported Medications Captopril* (Captopril*) Unknown Strength Tablet, 12.2 MG PO DAILY, #60 TAB 12/13/15 Dorzolamide-Timolol* (Cosopt*) 2%-0.5% Soln, 1 DROP BOTH EYES BID, BOTTLE 12/13/15 Discontinued Scripts Ondansetron Hcl* (Zofran*) 4 Mg Tab, 4 MG PO Q6H Y for NAUSEA AND OR VOMITING, # 6 TAB Prov:ENZO MICHELLE DO 12/13/15 Acetamin/Butalbital/Caffeine* (Fioricet*) 1 Tab Tab, 1 TAB PO Q4H Y for PAIN LEVEL 1-5, #14 TAB Prov:ENZO MICHELLE DO 12/13/15 Follow-up Plan FU with Primary x 1 week FU with surgery as recommended. Call 911 or go to the nearest hospital if symptoms get worse. Patient and family verbalized understanding dc instructions. Dw Dr Dsouza/ staff Primary Care Provider Roopa Nieto MD Time spent on discharge: < 30 minutes Pending Labs Laboratory Tests Test 05/22/17 07:46 White Blood Count 6.510^3/ul (4.8-10.8) Red Blood Count 3.9810^6/ul (4.20-5.40) Hemoglobin 11.1g/dl (12.0-16.0) Hematocrit 34.6% (37.0-47.0) Mean Corpuscular Volume 86.9fl (82.0-101.0) Mean Corpuscular Hemoglobin 27.9pg (29.0-33.0) Mean Corpuscular Hemoglobin Concent 32.1g/dl (32.0-37.0) Red Cell Distribution Width 13.1% (11.5-14.5) Platelet Count 40823^3/UL (140-415) Mean Platelet Volume 10.0fl (7.4-10.4) Neutrophils % 57.7% (39.0-77.0) Lymphocytes % 23.8% (15.0-51.0) Monocytes % 8.6% (0.0-11.0) Eosinophils % 8.3% (0.0-7.0) Basophils % 0.5% (0.0-2.0) Nucleated Red Blood Cells % 0.0/100WBC (0.0-0.0) Neutrophils # 3.810^3/ul (1.6-7.5) Lymphocytes # 1.610^3/ul (0.8-2.9) Monocytes # 0.610^3/ul (0.3-0.9) Eosinophils # 0.510^3/ul (0.0-0.5) Basophils # 0.010^3/ul (0.0-0.1) Nucleated Red Blood Cells # 0.010^3/ul (0.0-0.0) Sodium Level 145mmol/L (135-144) Potassium Level 3.2mmol/L (3.5-5.1) Chloride Level 108mmol/L (97-110) Carbon Dioxide Level 27mmol/L (21-31) Anion Gap 13 (8-16) Blood Urea Nitrogen 9mg/dl (7-20) Creatinine 0.66mg/dl (0.44-1.00) Glucose Level 114mg/dl (70-220) Calcium Level 9.2mg/dl (8.4-10.2) VEE AMADOR May 22, 2017 14:53
[2017-05-22 15:15] VITALS: BP 156/97; RESP 18
== END 2017-05-22 18:40 | disposition home or self-care (01) | DRG 331 ==
LOC: SDS 05:14 → MS1 10:01
PROVIDERS: ADMIT Surgery; ATTEND Surgery
PROC: 0WUF0JZ Supplement Abdominal Wall with Synthetic Substitute, Open Approach (ICD-10-PCS; 2017-05-19)
PROC: 0WJF4ZZ Inspection of Abdominal Wall, Percutaneous Endoscopic Approach (ICD-10-PCS; 2017-05-19)
PROC: 0DN80ZZ Release Small Intestine, Open Approach (ICD-10-PCS; 2017-05-19)
PROC: 0DB80ZZ Excision of Small Intestine, Open Approach (ICD-10-PCS; principal; 2017-05-19 07:30)
DX: K43.0 Incisional hernia with obstruction, without gangrene (principal); I10 Essential (primary) hypertension; K66.0 Peritoneal adhesions (postprocedural) (postinfection); E78.5 Hyperlipidemia, unspecified; F32.9 Major depressive disorder, single episode, unspecified
CPT/HCPCS: 71010; 80048; 80053; 85025; 88309; C1781; J0131; J0295; J0360; J0690; J1170; J1885; J2060; J2175; J2250; J2270; J2405; J2543; J2710; J2765; J3010; J3480; J7030